=== PATIENT | female | born 1985 | race Caucasian/White ===

== ENCOUNTER 2023-02-02 18:41 | Emergency (ER) | payer OTHER, SELFPAY ==
[2023-02-02 18:53] VITALS: BP 169/107; PULSE 125; RESP 20; TEMP 36.8; O2SAT 98; BMI 29.3
--- NOTE | 2023-02-02 19:11 | ED_ITS ---
HPI - Skin/Abscess/Foreign Bdy General Chief complaint: Skin/Abscess/Foreign Body Stated complaint: RASH Time Seen by Provider: 02/02/23 18:57 Source: patient Mode of arrival: walk-in History of Present Illness HPI narrative: patient is a 37-year-old female who presents to the emergency department for increasing pain of the right forehead. Patient was diagnosed with shingles of the face one week ago at [facility] emergency department. She states that she had an increase in swelling to the eyelids of the right eye several days ago and went back to the emergency department for ophthalmic evaluation, she was found to not have any evidence of shingles in her eye. She states she has completed her prescription of valacyclovir and steroids that she was given. She states that the rash has improved and swelling to the eye has also improved. She has had no drainage from the eye or visual changes. She states today on waking from a nap she had significant pain in the right forehead in the area of the rash. She is not concerned for . she was not prescribed any pain medication from [facility] with her diagnosis of shingles. She takes gabapentin twice a day for peripheral neuropathy. Related Data Previous Rx's Medication Instructions Recorded gabapentin 300 mg capsule 300 mg PO TID 7 days #21 caps 02/02/23 ketorolac 10 mg tablet 10 mg PO TID PRN pain #10 tabs 02/02/23 ondansetron 4 mg disintegrating 4 mg PO Q6H PRN nausea and 02/02/23 tablet vomiting #12 tabs oxycodone-acetaminophen 5 mg-325 1 tab PO Q6H PRN pain #15 tabs 02/02/23 mg tablet (Percocet) Review of Systems ROS Constitutional Denies: fever or chills Eyes Denies: change in vision, blurry vision or eye discharge Respiratory Denies: shortness of breath or cough Gastrointestinal Denies: nausea or vomiting Integumentary/Breast Reports: rash and skin pain Psychiatric Denies: anxiety Hematologic/Lymphatic Denies: easy bruising Allergic/Immunologic Denies: hives PFSH PFSH Social History Smoking status: Current every day smoker Exam Narrative Exam Narrative: Gen.: Awake, alert, in no distress Head: Normocephalic, atraumatic ENT: Moist mucous membranes; no conjunctival erythema or injection, no drainage from the right eye. No swelling noted of the right upper or lower eyelids. Healing rash noted to the forehead and right eyebrow Respiratory: No respiratory distress Extremities: Moves extremities equally Psych: Normal mood and affect Neuro: No focal neuro deficit Skin: Warm, dry, intact Constitutional Vital Signs, click to edit/add: Last Vital Signs Temp 98.3 F 02/02/23 18:53 Pulse 125 H 02/02/23 18:53 Resp 20 02/02/23 18:53 BP 169/107 H 02/02/23 18:53 Pulse Ox 98 02/02/23 18:53 O2 Del Method Room Air 02/02/23 18:53 Course Vital Signs Vital signs: Vital Signs Temperature 98.3 F 02/02/23 18:53 Pulse Rate 125 H 02/02/23 18:53 Respiratory Rate 20 02/02/23 18:53 Blood Pressure 169/107 H 02/02/23 18:53 Pulse Oximetry 98 02/02/23 18:53 Oxygen Delivery Method Room Air 02/02/23 18:53 Temperature 98.3 F 02/02/23 18:53 Pulse Rate 125 H 02/02/23 18:53 Respiratory Rate 20 02/02/23 18:53 Blood Pressure 169/107 H 02/02/23 18:53 Pulse Oximetry 98 02/02/23 18:53 Oxygen Delivery Method Room Air 02/02/23 18:53 MDM - Skin/Abscess/Foreign Bdy MDM Narrative Medical decision making narrative: exam is consistent with healing shingles rash, although the patient is having neuropathic pain to the forehead associated with the shingles. She was not prescribed any pain medication. She was initially tachycardic, heart rate was rechecked prior to discharge. She has no evidence of secondary cellulitis and no new eye complaints, she has previously been evaluated to determine there is no shingles rash in her right eye. She is treated for pain with Percocet, Toradol and gabapentin. She is prescribed gabapentin 3 times a day to take for the next week to help with nerve pain as well as prescriptions for Percocet and Toradol for home. Due to her history of diabetes, we will not repeat a steroid prescription. Follow-up with PCP and return to the Emergency Room if symptoms change or worsen. Medical Records Attestation: I reviewed the patient's medical records. Discharge Plan Discharge Chief Complaint: Skin/Abscess/Foreign Body Clinical Impression: Shingles Patient Disposition: Home, Self-Care Time of Disposition Decision: 19:07 Condition: Good Prescriptions / Home Meds: New gabapentin 300 mg capsule 300 mg PO TID 7 Days Qty: 21 0RF ketorolac 10 mg tablet 10 mg PO TID PRN (Reason: pain) Qty: 10 0RF oxycodone-acetaminophen [Percocet] 5-325 mg tablet 1 tab PO Q6H PRN (Reason: pain) Qty: 15 0RF Rx Instructions: DX: B02.9 ondansetron 4 mg tablet,disintegrating 4 mg PO Q6H PRN (Reason: nausea and vomiting) Qty: 12 0RF Instructions: Ez (ED) Stand Alone Forms: Portal Instructions Referrals: Physician,Non-Staff, MD [Primary Care Provider] - 1 week
[2023-02-02] MEDS: OXYCODONE HCL/ACETAMINOPHEN 5MG/325MG 1 TAB PO (19:29)
[2023-02-02] MEDS: KETOROLAC TROMETHAMINE 60 MG/2 ML VIAL IM (19:29)
[2023-02-02] MEDS: OXYCODONE HCL/ACETAMINOPHEN 5MG/325MG 2 TAB PO (19:30)
== END 2023-02-02 19:42 | disposition home or self-care (01) ==
PROVIDERS: Emergency Provider Emergency Medicine
DX: B02.9 Zoster without complications (principal); F17.210 Nicotine dependence, cigarettes, uncomplicated
CPT/HCPCS: 96372; 99284